=== PATIENT | female | born 1970 | race Asian ===

== ENCOUNTER 2023-05-20 06:21 | Day surgery (SDC) | payer OTHER, SELFPAY ==
[2023-05-11 12:21] VITALS: BMI 19.5
[2023-05-11 13:41] LABS: Hematocrit 38.7 % (37.0-47.0); Hemoglobin 12.8 g/dL (12.0-16.0); Mean Corp Hgb Conc. 33.1 g/dL (33.0-37.0); Mean Corpuscular Hgb 28.6 pg (27.0-31.0); Mean Corpuscular Volume 86.6 fL (81.0-99.0); Mean Platelet Volume 10.3 fL (7.4-10.4); Platelet Count 268 10^3/uL (130-400); Red Blood Cell Count 4.47 10^6/uL (4.20-5.40); Red Cell Dist. Width 12.6 % (11.5-14.5); White Blood Cell Count 6.5 10^3/uL (4.8-10.8)
[2023-05-20] VITALS (9 sets, daily range): BP systolic 94–133; BP diastolic 58–82; BMI 19.5
[2023-05-20] MEDS: NORMOSOL-R 1000 IV (09:00)
[2023-05-20] MEDS: TRANSDERM-SCOP 1 PATCH TRANSDERM (09:23)
== END 2023-05-20 13:57 | disposition home or self-care (01) ==
LOC: SDS 06:21
PROVIDERS: ATTENDING PHYSICIAN Otolaryngology; FAMILY PHYSICIAN Nurse Practitioner Family
DX: J34.2 Deviated nasal septum (principal); J32.0 Chronic maxillary sinusitis; B48.8 Other specified mycoses
CPT/HCPCS: 31254; 30520; 31267; 88304; 88311; 36415; 85027; 87070; 87075; 87076; 87147; 87186; 87205; 93005; A9589

== ENCOUNTER → 2023-08-16 11:43 | Outpatient (REF) | payer OTHER, SELFPAY | LOC: WDC 11:43 | PROVIDERS: ATTENDING PHYSICIAN Nurse Practitioner Adult Health; FAMILY PHYSICIAN Nurse Practitioner Family | DX: Z12.31 Encounter for screening mammogram for malignant neoplasm of breast (principal) | CPT/HCPCS: 77063; 77067 ==

== ENCOUNTER → 2024-08-16 11:53 | Outpatient (REF) | payer OTHER, SELFPAY | LOC: WDC 11:53 | PROVIDERS: ATTENDING PHYSICIAN Nurse Practitioner Adult Health; FAMILY PHYSICIAN Nurse Practitioner Family | DX: Z12.31 Encounter for screening mammogram for malignant neoplasm of breast (principal) | CPT/HCPCS: 77063; 77067 ==

== ENCOUNTER → 2024-08-25 09:25 | Outpatient (REF) | payer OTHER, SELFPAY | LOC: WDC 09:25 | PROVIDERS: ATTENDING PHYSICIAN Nurse Practitioner Adult Health; FAMILY PHYSICIAN Nurse Practitioner Family | DX: R92.8 Other abnormal and inconclusive findings on diagnostic imaging of breast (principal) | CPT/HCPCS: 76642 ==